=== PATIENT | female | born 1955 | race American Indian/Alaskan Native ===

== ENCOUNTER → 2018-05-08 | Outpatient (CLI) | payer OTHER | END | disposition home or self-care (01) | LOC: HKI 13:50 | DX: M25.512 Pain in left shoulder (principal); M25.511 Pain in right shoulder | CPT/HCPCS: Z7500 ==

== ENCOUNTER 2018-10-30 07:44 | Inpatient (IN) | payer OTHER ==
[~2018-10-30 07:44] MED LIST: DESFLURANE 15 MIN
[2018-10-30] MEDS ORDERED: FENTAnyl 50 MCG/ML VIAL (07:52)
[2018-10-30] MEDS ORDERED: NEOSTIGMINE 3 MG/3 ML SYRINGE (07:52)
[2018-10-30] MEDS ORDERED: PROPOFOL 20 ML (07:52)
[2018-10-30] MEDS ORDERED: MIDAZOLAM 1 MG/ML 2 ML INJ (07:52)
[2018-10-30] MEDS ORDERED: GLYCOPYRROLATE 0.4 MG INJ (07:52)
[2018-10-30] MEDS ORDERED: ONDANSETRON 4 MG INJ (07:52)
[2018-10-30] MEDS ORDERED: ROPIVACAINE 0.5 % 30 ML VIAL (07:52)
[2018-10-30] MEDS ORDERED: CEFAZOLIN 1 GM INJ (07:52)
[2018-10-30] MEDS ORDERED: ROCURONIUM 50 MG INJ (07:52)
[2018-10-30] MEDS ORDERED: DEXAMETHASONE 4 MG/ML 1 ML INJ (07:52)
[2018-10-30] MEDS: GABAPENTIN 300 MG CAP PO ×2 (08:23→20:35)
[2018-10-30] MEDS: DEXAMETHASONE 1 MG TAB PO (08:23)
[2018-10-30 08:39] LABS: ADD MAN DIFF? NO
[2018-10-30 08:45] LABS: BASOPHILS % 0.3 % (0.0-2.0); EOSINOPHILS # 0.1 10^3/ul (0.0-0.5); EOSINOPHILS % 2.1 % (0.0-7.0); HEMATOCRIT 33.8 % (37.0-47.0); HEMOGLOBIN 11.2 g/dl (12.0-16.0); LYMPHOCYTES % 32.7 % (15.0-51.0); MEAN CORPUSCULAR HEMOGLOBIN 32.1 pg (29.0-33.0); MEAN CORPUSCULAR HGB CONC 33.1 g/dl (32.0-37.0); MEAN CORPUSCULAR VOLUME 96.8 fl (82.0-101.0); MEAN PLATELET VOLUME 10.2 fl (7.4-10.4); MONOCYTE # 0.6 10^3/ul (0.3-0.9); MONOCYTES % 9.8 % (0.0-11.0); NEUTROPHIL # 3.4 10^3/ul (1.6-7.5); NEUTROPHILS % 54.9 % (39.0-77.0); PLATELET COUNT 196 10^3/UL (140-415); RED BLOOD COUNT 3.49 10^6/ul (4.20-5.40); RED CELL DISTRIBUTION WIDTH 12.8 % (11.5-14.5)
[2018-10-30 08:45] LABS: WHITE BLOOD COUNT 6.2 10^3/ul (4.8-10.8)
[2018-10-30] MEDS: CEFAZOLIN 2 GM/50 ML (PMX) 50 ML IVPB (09:00)
[2018-10-30] MEDS ORDERED: BUPIVACAINE 0.5% (SDV) 30 ML, morphine SULFATE (PF) 8 MG, EPINEPHrine 0.3 MG, KETOROLAC... IRR (09:00)
[2018-10-30] MEDS: TRANEXAMIC ACID 1,000 MG in DEXTROSE 5% 100 ML IVPB (09:00)
[2018-10-30 09:04] LABS: INR 1.11; PROTIME 14.5 Sec (11.9-14.9); PT RATIO 1.1
[2018-10-30 09:05] LABS: PARTIAL THROMBOPLASTIN TIME 30.6 Sec (23.0-35.0)
[2018-10-30 09:11] LABS: ALANINE AMINOTRANSFERASE 505 IU/L (13-69); ALBUMIN 3.9 g/dl (3.3-4.9); ALBUMIN/GLOBULIN RATIO 1.25; ALKALINE PHOSPHATASE 91 IU/L (42-121); ANION GAP 10 (5-13); ASPARTATE AMINO TRANSFERASE 300 IU/L (15-46); BILIRUBIN,INDIRECT 0.4 mg/dl (0-1.1); BILIRUBIN,TOTAL 0.4 mg/dl (0.2-1.3); BLOOD UREA NITROGEN 7 mg/dl (7-20); CARBON DIOXIDE 22 mmol/L (21-31); CHLORIDE 107 mmol/L (97-110); CREATININE 0.72 mg/dl (0.44-1.00); Estimated GFR > 60 mL/min (>60); GLUCOSE 104 mg/dl (70-220); POTASSIUM 3.9 mmol/L (3.5-5.1); SODIUM 139 mmol/L (135-144)
[2018-10-30] MEDS ORDERED: LABETALOL HCL 20MG INJ IV (09:30)
[2018-10-30] MEDS ORDERED: KETOROLAC 15 MG INJ IV (09:30)
[2018-10-30] MEDS ORDERED: MAGNESIUM HYDROXIDE 30ML CUP PO (09:30)
[2018-10-30] MEDS ORDERED: NACL 0.9% 3 ML SYG IV (09:30)
[2018-10-30] MEDS ORDERED: ONDANSETRON 4 MG INJ IV ×2 (09:30)
[2018-10-30] MEDS ORDERED: EPHEDrine SULFATE 50 MG/5 ML SYG IV (09:30)
[2018-10-30] MEDS ORDERED: MIDAZOLAM 1 MG/ML 2 ML INJ IV (09:30)
[2018-10-30] MEDS ORDERED: HYDROmorphONE 1 MG/5 ML IV SYRINGE IV ×3 (09:30)
[2018-10-30] MEDS ORDERED: DIPHENHYDRAMINE 50 MG INJ IV (09:30)
[2018-10-30] MEDS ORDERED: LOPERAMIDE 2 MG CAP PO (09:30)
[2018-10-30] MEDS ORDERED: FENTAnyl 50 MCG/ML VIAL IV ×3 (09:30)
[2018-10-30] MEDS ORDERED: ALBUTEROL 0.083% (NEB) 2.5 MG/3 ML AMP HHN (09:30)
[2018-10-30] MEDS ORDERED: OXYCODONE/ACETAMINOPHEN (5/325) TAB PO ×2 (09:30)
[2018-10-30] MEDS ORDERED: ZOLPIDEM 5 MG TAB PO (09:30)
[2018-10-30] MEDS ORDERED: IPRATROPIUM (NEB) 0.5 MG/2.5 ML AMP HHN (09:30)
[2018-10-30] MEDS ORDERED: hydrALAzine 20 MG INJ IV (09:30)
[2018-10-30] MEDS ORDERED: TRIMETHOBENZAMIDE 100 MG/ML VIAL IM (09:30)
[2018-10-30] MEDS ORDERED: MEPERIDINE 25 MG INJ IV (09:30)
[2018-10-30] MEDS ORDERED: oxyCODONE 5 MG TAB PO ×2 (09:30)
[2018-10-30] MEDS: TRANEXAMIC ACID 1,000 MG in SOD CHLORIDE 0.9% 100 ML IVPB (11:37)
[2018-10-30] MEDS: DIPHENHYDRAMINE 50 MG INJ IV (11:43)
[2018-10-30] MEDS: CEFAZOLIN 1 GM/50 ML (PMX) 50 ML IVPB ×2 (12:02→17:26)
[2018-10-30] MEDS: DEXAMETHASONE 2 MG TAB PO ×2 (12:06→17:25)
[2018-10-30] MEDS: ACETAMINOPHEN 500 MG TAB PO ×2 (12:07→17:25)
[2018-10-30] MEDS: HYDROmorphONE 1 MG/ML SYG IV ×2 (15:10→20:36)
[2018-10-30] MEDS: ALPRAZOLAM 1 MG TAB PO (18:23)
[2018-10-30] MEDS: QUETIAPINE 100 MG TAB PO (20:36)
[2018-10-30] MEDS: SENNA/DOCUSATE NA (8.6MG/50MG) TAB PO (20:36)
[2018-10-31] MEDS: DEXAMETHASONE 2 MG TAB PO ×2 (00:31→05:51)
[2018-10-31] MEDS: ACETAMINOPHEN 500 MG TAB PO ×2 (00:31→05:51)
[2018-10-31] MEDS: HYDROmorphONE 1 MG/ML SYG IV ×2 (00:32→04:17)
[2018-10-31] MEDS: CEFAZOLIN 1 GM/50 ML (PMX) 50 ML IVPB (01:22)
[2018-10-31] MEDS: ALPRAZOLAM 1 MG TAB PO (05:55)
[2018-10-31] MEDS: SENNA/DOCUSATE NA (8.6MG/50MG) TAB PO (09:00)
[2018-10-31] MEDS: oxyCODONE 5 MG TAB PO (10:22)
[2018-10-31] MEDS: ASPIRIN 81 MG TAB PO (10:22)
== END 2018-10-31 12:01 | disposition home or self-care (01) | DRG 483 ==
LOC: REC 07:44 → MS1 14:24
PROC: 0RRK0JZ Replacement of Left Shoulder Joint with Synthetic Substitute, Open Approach (ICD-10-PCS; principal; 2018-10-30 09:30)
PROC: 0RPK0JZ Removal of Synthetic Substitute from Left Shoulder Joint, Open Approach (ICD-10-PCS; 2018-10-30 09:30)
DX: T84.028A Dislocation of other internal joint prosthesis, initial encounter (principal); Z96.612 Presence of left artificial shoulder joint; F32.9 Major depressive disorder, single episode, unspecified; F41.9 Anxiety disorder, unspecified; Y84.8 Other medical procedures as the cause of abnormal reaction of the patient, or of later complication, without mention of misadventure at the time of the procedure; Y92.019 Unspecified place in single-family (private) house as the place of occurrence of the external cause; Z87.891 Personal history of nicotine dependence; Z79.82 Long term (current) use of aspirin
CPT/HCPCS: 71045; 73030; 80053; 85025; 85610; 85730; 86999